=== PATIENT | male | born 1955 ===

== ENCOUNTER 2024-12-21 05:35 | Day surgery (SDC) | payer OTHER ==
[2024-12-15 10:57] LABS: URINE APPEARANCE Clear; URINE BILIRRUBIN Negative (NEGATIVE); URINE BLOOD Moderate; URINE COLOR Yellow; URINE GLUCOSE Negative (NEGATIVE); URINE KETONE Negative (NEGATIVE); URINE LEUKOCYTE Negative; URINE NITRATE Negative; URINE PROTEIN 30 (NEGATIVE); URINE UROBILINOGEN 0.2 E.U./dl
[2024-12-15 11:02] LABS: URINE BACTERIA 13.4 uL (0.0-1933); URINE RBC 6.7 uL (0.0-20.8); URINE WBC 3.1 uL (0.0-23.2)
[2024-12-15 11:10] LABS: BASO % 0.3 % (0.1-1.2); EOS # 0.08 (0.04-0.54); EOS % 1.3 % (0.7-7.0); HEMATOCRIT 48.8 % (40.1-51.0); HEMOGLOBIN 16.4 g/dL (13.7-17.5); LYMPH # 1.34 (1.18-3.74); LYMPH % 22.6 % (19.3-53.1); MEAN CORPUSCULAR HEMOGLOBIN 31.2 pg (25.6-32.2); MONO # 0.59 (0.24-0.82); MONO % 9.9 % (4.7-12.5); NEUT # 3.89 (1.56-6.13); NEUT % 65.7 % (34.0-71.1); PLATELET COUNT 193 K/uL (163-369); RED BLOOD COUNT 5.25 M/uL (4.63-6.08); RED CELL DISTRIBUTION WIDTH 12.3 % (11.6-14.4)
[2024-12-15 11:12] LABS: URINE CAST 0.14 uL (0.0-1.40); URINE EPITHELIAL CELLS 0.9 uL (0.0-38.8)
[2024-12-15 11:37] VITALS: BP 160/90
[2024-12-15 11:42] LABS: PARTIAL THROMBOPLASTIN TIME 31.6 SECONDS (22.0-34.0); PROTHROMBIN TIME 10.9 SECONDS (9.0-11.5)
[2024-12-15 12:05] LABS: ALBUMIN 4.2 gm/dL (3.4-5.0); BILIRUBIN TOTAL 0.54 mg/dL (0.3-1.2); CALCIUM 9.4 mg/dL (8.5-10.1); CREATININE SERUM 1.09 mg/dL (0.70-1.30); GFR 67.47; GLOBULINA 3.6 G/DL (2.4-3.5); POTASSIUM 4.67 mEq/L (3.5-5.1); TOTAL PROTEIN 7.8 gm/dL (6.4-8.2)
[~2024-12-21] VITALS: Ht 165.1 cm; Wt 77.1 kg
[~2024-12-21 05:35] MED LIST: EZALLOR SPRINKL20 MG PO
[2024-12-21] MEDS ORDERED: CEFAZOLIN SODIUM 1,000 MG VIAL ONE ×2 (07:27→11:39)
[2024-12-21] MEDS ORDERED: LIDOCAINE HCL 1% 20 ML VIAL IJ ONE (09:31)
[2024-12-21] MEDS ORDERED: LIDOCAINE HCL 1%/EPINEPHRINE 20ML VIAL IJ ONE (09:31)
[2024-12-21] MEDS ORDERED: FAMOTIDINE/PF 20 MG/2 ML VIAL ONE (11:40)
[2024-12-21] MEDS ORDERED: FAMOTIDINE/PF 20 MG/10 ML SYRINGE IV SCH (11:45)
[2024-12-21] MEDS ORDERED: CEFAZOLIN SODIUM 1,000 MG VIAL IV SCH (11:45)
== END 2024-12-21 13:05 | disposition home or self-care (01) ==
LOC: CIR.AMB 05:35
PROVIDERS: ATTEND Specialist
DX: D21.6 Benign neoplasm of connective and other soft tissue of trunk, unspecified (principal)